=== PATIENT | female | born 1955 | race Caucasian/White ===

== ENCOUNTER 2023-03-10 13:07 | Outpatient (CLI) | payer MEDICARE, OTHER, SELFPAY | END 2023-03-10 13:08 | disposition home or self-care (01) | PROVIDERS: Visit Provider Family Medicine | DX: E11.9 Type 2 diabetes mellitus without complications (principal); Z79.899 Other long term (current) drug therapy; E03.9 Hypothyroidism, unspecified; E78.5 Hyperlipidemia, unspecified; I10 Essential (primary) hypertension | CPT/HCPCS: 80048; 80061; 84443; 84460 ==

== ENCOUNTER 2023-05-15 15:18 | Outpatient (CLI) | payer MEDICARE, OTHER, SELFPAY ==
--- NOTE | 2023-05-15 16:00 | CRLHL7_ITS ---
For Patients: As a result of the Cures Act, medical imaging exams and procedure reports are released immediately into your electronic medical record. You may view this report before your referring provider. If you have questions, please contact your health care provider. INDICATION: Trauma, fall. Left eye and facial bruising. TECHNIQUE: CT maxillofacial without contrast. COMPARISON: None. FINDINGS: Facial bones: Comminuted mildly displaced fracture of the nasal bone. Nondisplaced fracture plane extends to the frontal process of the left maxilla. Nasal septum is intact. Right TMJ arthrosis. Orbits and globes: Mild left superior periorbital soft tissue swelling. Globes are intact. No sign of intraorbital hemorrhage or emphysema. Sinuses: No acute or significant findings. Soft tissues: Partially visualized brain demonstrates generalized cerebral atrophy. IMPRESSION: 1. Comminuted mildly displaced nasal bone fracture with nondisplaced fracture plane extending to the left maxilla frontal process. 2. Mild left superior periorbital soft tissue swelling. Please note that all CT scans at this facility use dose modulation, iterative reconstruction, and/or weight-based dosing when appropriate to reduce radiation dose to as low as reasonably achievable. Dictated by Serafin Youssef MD @ 05/15/2023 4:17:32 PM (Electronically Signed)
== END 2023-05-15 15:19 | disposition home or self-care (01) ==
LOC: CT 15:19
PROVIDERS: PCP Family Medicine; Visit Provider Family Medicine
DX: S09.93XA Unspecified injury of face, initial encounter (principal); S02.2XXA Fracture of nasal bones, initial encounter for closed fracture; S02.40DA Maxillary fracture, left side, initial encounter for closed fracture
CPT/HCPCS: 70486

== ENCOUNTER 2023-07-09 10:26 | Outpatient (CLI) | payer MEDICARE, OTHER, SELFPAY | END 2023-07-09 10:27 | disposition home or self-care (01) | PROVIDERS: PCP Family Medicine; Visit Provider Family Medicine | DX: E03.9 Hypothyroidism, unspecified (principal); I10 Essential (primary) hypertension; E11.9 Type 2 diabetes mellitus without complications | CPT/HCPCS: 80048; 82043; 82570; 84443; 85025 ==

== ENCOUNTER 2023-11-03 10:25 | Outpatient (CLI) | payer MEDICARE, OTHER, SELFPAY | END 2023-11-03 10:26 | disposition home or self-care (01) | LOC: NFLDREF 11-05 09:06 | PROVIDERS: PCP Family Medicine; Referring Provider Family Medicine; Visit Provider Family Medicine | DX: E03.9 Hypothyroidism, unspecified (principal); N39.0 Urinary tract infection, site not specified | CPT/HCPCS: 84443; 87086; 87186 ==

== ENCOUNTER 2024-03-14 14:05 | Outpatient (CLI) | payer MEDICARE, OTHER, SELFPAY ==
--- NOTE | 2024-03-14 14:30 | MR_ITS ---
[facility] [address] [facility] [address] Phone:?[phone] Fax:?[phone] Referring Physician Information: Asa Coats [address] [facility] [address] Phone:?[phone] Fax:?[phone] Patient:Robyn Moore D.O.B:?1955 Sex:?Female Phone:?[phone] [facility] MRN:?[id number] Exam Date:?03/14/2024 EXAM: MRI of the RIGHT SHOULDER, without contrast CLINICAL: Right shoulder pain. Evaluate supraspinatus and AC joint. COMPARISONS: X-rays dated 03/11/24. TECHNICAL: Multiplanar multisequence MRI of the right shoulder was obtained. SEDATION: None. CONTRAST: None. FINDINGS: Rotator cuff: Supraspinatus/Infraspinatus: There is moderate tendinosis of the distal supraspinatus and infraspinatus tendons. There is partial articular surface tearing of the posterior distal supraspinatus tendon on coronal series 5 images 11-12 with partial interstitial and bursal surface tearing of supraspinatus tendon just anterior to this on coronal series 5 image 10. Tearing involves approximately 65% of the tendon thickness. There is focal partial interstitial insertional tearing of the posterior distal infraspinatus tendon on coronal series 5 image 16. No significant fatty atrophy of the muscle bellies. Teres minor: No tendinosis, tear or atrophy. Subscapularis: Mild tendinosis of the tendon. No significant tendon tear and no significant fatty atrophy of the muscle belly. Bursae: Subacromial-subdeltoid: Mild bursal fluid. Subcoracoid: No significant bursal fluid. Coracoacromial arch: Acromion morphology: Type II. No os acromiale. Acromiohumeral space: Within normal limits. Coracohumeral space: Within normal limits. Biceps tendon, long head: Evaluation of the intra-articular tendon is somewhat limited by artifact. Suspect attenuation/partial tearing of the intra-articular tendon as visualized. Mild tendinosis/partial tearing involves the imaged proximal extra-articular tendon. Mild fluid and low signal synovitis noted about the imaged proximal extra-articular tendon. No significant tendon displacement. Glenohumeral joint: Physiologic volume of joint fluid. Articular cartilage: No discrete chondral defects identified as visualized. Capsule: No convincing evidence of capsular thickening or injury. Labrum: Ill-defined fraying/tearing is seen to involve the superior labrum. No additional labral tear identified. No perilabral cyst identified. Bones: Small cystic changes and with adjacent reactive marrow edema involves the greater tuberosity of the proximal humerus. There is no evidence of fracture. Acromioclavicular joint: Moderate degenerative hypertrophic changes are seen to involve the superior aspect of the AC joint. No AC joint widening. IMPRESSION: 1. Moderate tendinosis with superimposed partial tearing of the distal supraspinatus and infraspinatus tendons as above. Mild tendinosis of the subscapularis tendon. 2. Suspect tendinosis/partial tearing of the intra-articular long head biceps tendon as visualized with mild tendinosis/partial interstitial tearing of the imaged proximal extra-articular tendon. 3. Ill-defined fraying/tearing involving the superior labrum. 4. Moderate degenerative hypertrophic change involving the superior aspect of the AC joint. 5. Mild subacromial-subdeltoid bursitis. [facility] Electronically signed on 03/15/2024 10:17:00 AM by Leonard Fernandez D.O.
== END 2024-03-14 14:06 | disposition home or self-care (01) ==
PROVIDERS: PCP Family Medicine; Visit Provider Physician Assistant
DX: M25.511 Pain in right shoulder (principal); M75.101 Unspecified rotator cuff tear or rupture of right shoulder, not specified as traumatic; S46.211A Strain of muscle, fascia and tendon of other parts of biceps, right arm, initial encounter; M75.51 Bursitis of right shoulder; M25.611 Stiffness of right shoulder, not elsewhere classified
CPT/HCPCS: 73221

== ENCOUNTER 2024-05-31 13:26 | Outpatient (CLI) | payer MEDICARE, OTHER, SELFPAY | END 2024-05-31 13:27 | disposition home or self-care (01) | PROVIDERS: PCP Family Medicine; Visit Provider Family Medicine | DX: E03.9 Hypothyroidism, unspecified (principal); I10 Essential (primary) hypertension; E78.2 Mixed hyperlipidemia | CPT/HCPCS: 80048; 80061; 84443; 84460 ==

== ENCOUNTER 2024-06-21 06:27 | Day surgery (SDC) | payer MEDICARE, OTHER, SELFPAY ==
[2024-06-21] VITALS (17 sets, daily range): BP systolic 119–174; BP diastolic 61–96; PULSE 69–90; RESP 14–16; TEMP 35.7–36.7; O2SAT 91–99; BMI 35.4
[2024-06-21] MEDS: ACETAMINOPHEN 500 MG TABLET 1000 MG PO (07:19)
[2024-06-21] MEDS: OXYCODONE (CR) 10 MG TAB.ER.12H PO (07:20)
[2024-06-21] MEDS: CELECOXIB 200 MG CAPSULE PO (07:20)
[2024-06-21] MEDS: SODIUM CHLORIDE 0.9 % (FLUSH) 10 ML SYRINGE IVF (07:25)
[2024-06-21] MEDS: LACTATED RINGERS 500 ML 500 ML 100 ML IV (07:40)
--- NOTE | 2024-06-21 07:40 | SUR.PREOP ---
TIME?OUT:?7640 PT/RN/MDA?VERIFICATION?OF?SURGICAL?SITE, NERVE BLOCK,?PROCEDURE,?AND?CONSENT OBTAINED?PRIOR?TO?INVASIVE?PROCEDURE.
[2024-06-21] MEDS: MIDAZOLAM HCL 1 MG/ML inj IVP (07:41)
[2024-06-21] MEDS: fentaNYL 100 MCG/2 ML inj IVP (07:41)
[2024-06-21] MEDS: CEFAZOLIN 2 GM INJ IVP (08:15)
[2024-06-21] MEDS: LACTATED RINGERS 1000 ML 1,000 ML 100 ML IV (08:45)
--- NOTE | 2024-06-21 08:55 | P.NB_ITS ---
Nerve Block Nerve Block Time Seen by Provider: 07:46 Date Seen: 06/21/24 Type of block requested by surgeon for post-operative analgesia: supraclavicular Side: right Time out performed: Yes Verification of patient name: Yes Verification of date of : Yes Site marking: site marked Name of person performing procedure: Jose Continuous monitoring Was continuous monitoring of O2 sat, B/P, clinical research monitor, recorded every 15 minutes?: Yes Procedure Checklist: sterile prep, needles and gloves Ultrasound guided. Images saved: Yes Medications given in 5ml increments after negative aspiration: Ropivicaine %: 0.5 mL: 20 Needle gauge: 22 Precedex (mcg): 25 Patient tolerated procedure well: Yes Block Charges Block Charge (with Pro Fee): Brachial Plexus Use of Ultrasound Machine for Block: Yes- US Guidance/pain block
--- NOTE | 2024-06-21 08:56 | W.ANESCHARGE ---
Anesthesia Charges Start Date/Time Anesthesia Start Date: 06/21/24 Anesthesia Start Time: 07:59 Stop Date/Time Anesthesia Stop Date: 06/21/24 Anesthesia Stop Time: 10:19 Summary Extremes of Age - Over 70 or under 1: MDA Coding CPT Codes CPT Codes: ANESTH SURGERY OF SHOULDER - 24158 ([id number]) P2 - PATIENT W/MILD SYST DISEASE, QK - PRESSURE TANK OPERATOR 2-4 CNCRNT ANES PROC, QX - GREASE PACKER SVC W/ MD MED DIRECTION Additional Codes: Summary - Extremes of Age - Over 70 or under 1: MDA ([id number])
--- NOTE | 2024-06-21 09:51 | P.ORPRC_ITS ---
Procedure Note Date of procedure: 06/21/24 Procedure: PREOPERATIVE DIAGNOSIS: Right shoulder rotator cuff tear, AC joint arthrosis, biceps tendinopathy, labral tearing POSTOPERATIVE DIAGNOSIS: Right shoulder rotator cuff tear, AC joint arthrosis, biceps tendinopathy, labral tearing NAME OF OPERATION: Right shoulder arthroscopic subacromial decompression, distal clavicle excision, mini open rotator cuff repair, limited glenohumeral joint debridement, biceps tenodesis SURGEON: James Rubalcava MD ELECTROPLATING WORKER: Antonia Toledo PA-C ANESTHESIA: Supraclavicular block plus general endotracheal ESTIMATED BLOOD LOSS: 5 mL COMPLICATIONS: None SPECIMENS: None DRAINS: None PREOPERATIVE ANTIBIOTICS: Ancef 2 grams INDICATIONS: The patient is a 68-year-old with a history of right shoulder pain secondary to the above diagnoses. Despite appropriate non operative management, they continue to have symptoms. Operative intervention was recommended. The risks, benefits and expected outcomes were discussed in detail. These included but were not limited to: Infection, bleeding, injury to blood vessel or nerve, venous thromboembolism. All questions were answered to their satisfaction. PROCEDURE: A supraclavicular block was placed by Anesthesia. General anesthesia was administered. The patient was placed in the high beach chair position. The right shoulder was prepped and draped in the usual sterile fashion. The glenohumeral joint was infiltrated with 20 mL of normal saline with epinephrine. The posterior portal was established, the arthroscope was introduced. The anterior portal was established, Diagnostic arthroscopy was performed with findings as follows: The biceps has a marked amount of intra- articular tendinopathy The anterior, posterior and superior labrum shows age- appropriate degenerative tearing. Articular surfaces on the humeral head and glenoid are normal. There are no loose bodies. There is a near full-thickness tear of the supraspinatus. The biceps was tenotomized with arthroscopic scissors and radiofrequency probe. The stump was debrided with the shaver. The superior labrum was debrided with the shaver. The arthroscope was placed in the subacromial space, the lateral portal was established. The Arthrex [place] was used to dissect the acromion free. The CA ligament was recessed off the anterior acromion, the AC joint was exposed. The acromioplasty was performed with the bur in the posterior portal. The bur was then placed in the lateral portal and the lateral and anterior aspect of the acromion were resected. The undersurface of the distal clavicle was resected through the lateral portal. Finally, the bur was placed in the anterior portal and the remainder of the distal clavicle was resected for a total of 10 mm. An accessory anterolateral portal was placed. The subacromial/subdeltoid bursa was aggressively debrided. There is a near full-thickness tear of the supraspinatus. Arthroscopic instruments were removed. The accessory anterolateral portal was extended proximally and distally, subcutaneous dissection was taken with electrocautery to the deltoid. The deltoid was divided in line with its fibers. The static retractor was placed. The subacromial/subdeltoid bursa was debrided with the Anaya scissors. The few remaining insertional fibers of the supraspinatus were released with the scalpel. The biceps was delivered into the wound. A whipstitch was placed in the biceps using a FiberLink and the scorpion. The greater tuberosity was debrided to punctate bleeding bone using the Lempert rongeur. Two FiberTak anchors were placed in the greater tuberosity, just off the articular surface. Both limbs of the FiberWire and fiber tape were passed using the scorpion. A fiber link was placed in the leading edge of the rotator cuff x2. The biceps was tenodesed, high in the bicipital groove with a SwiveLock anchor, using the whipstitch previously placed in it. The sutures on the eyelet were passed through the supraspinatus and tied over the bursal surface. We tied the 2 central FiberWire sutures over the rotator cuff. We then proceeded with a lateral row of SwiveLock anchors x 2 crossing the FiberTape and incorporating the FiberWire and fiber link into each lateral row anchor. This provides an anatomic, watertight repair of the rotator cuff. There is no tension on the repair with the shoulder at 0? abduction. The wound was irrigated with normal saline off the pump. The deltoid was repaired with an 0 Vicryl in an interrupted [id number] fashion. Subcutaneous tissues were closed with a 3-0 Vicryl. Skin was closed with a 3-0 Monocryl in a subcuticular fashion. A dry dressing and sling were applied. Sponge and needle counts were correct x2. The patient tolerated the procedure well. There were no apparent complications. They were carefully transferred to the hospital bed and taken to the postanesthesia care unit in satisfactory condition. PLAN: The patient will be discharged to home. No active range of motion of the shoulder will be allowed for 6 weeks postoperatively. They can work on active range of motion of the elbow, wrist and fingers. They will follow up in the office next week for a wound check and an AP and transscapular Y-view of the shoulder prior to being seen.
--- NOTE | 2024-06-21 10:23 | W.ANESCHARGE ---
Anesthesia Charges Start Date/Time Anesthesia Start Date: 06/21/24 Anesthesia Start Time: 07:59 Stop Date/Time Anesthesia Stop Date: 06/21/24 Anesthesia Stop Time: 10:19 Coding CPT Codes CPT Codes: ANESTH SURGERY OF SHOULDER - 60895 ([id number]) P2 - PATIENT W/MILD SYST DISEASE, QK - WHITE WORK CLEANER 2-4 CNCRNT ANES PROC, QX - LEAD PROGRAMMER ANALYST SVC W/ MD MED DIRECTION
== END 2024-06-21 12:22 | disposition home or self-care (01) ==
LOC: OR 06:28
PROVIDERS: PCP Family Medicine; Visit Provider Orthopaedic Surgery
PROC: (CPT 23412; principal; 2024-06-21 08:00)
DX: M75.101 Unspecified rotator cuff tear or rupture of right shoulder, not specified as traumatic (principal); M19.011 Primary osteoarthritis, right shoulder; M75.21 Bicipital tendinitis, right shoulder; S43.431A Superior glenoid labrum lesion of right shoulder, initial encounter; G89.18 Other acute postprocedural pain; I10 Essential (primary) hypertension; E11.9 Type 2 diabetes mellitus without complications; K21.9 Gastro-esophageal reflux disease without esophagitis; N32.81 Overactive bladder
CPT/HCPCS: 29826; 29824; 29822; 29828; 23412; 01630; 64415; 76942; 82962; 99100; A9270; C1713; J0330; J0690; J1100; J2250; J2371; J2405; J2704; J2795; J3010; J7120

== ENCOUNTER 2024-12-23 08:58 | Outpatient (CLI) | payer MEDICARE, OTHER, SELFPAY ==
--- NOTE | 2024-12-23 09:15 | CRLHL7_ITS ---
For Patients: As a result of the Century Cures Act, medical imaging exams and procedure reports are released immediately into your electronic medical record. You may view this report before your referring provider. If you have questions, please contact your health care provider. Technique: Single contrast timed barium esophagram performed with administration of 150 cc thin barium. Patient swallowed the barium within 1 minute. Fluoroscopy time 28 seconds. Indication: Dysphagia, evaluate LES Function Comparison: None. Findings: 1 minute: All of the contrast is located in the stomach. 2 minute: A small amount of reflux is noted. 5 minute: Not performed. Impression: No achalasia. Dictated by Zeferino Zapien MD @ 12/23/2024 10:12:58 AM (Electronically Signed)
== END 2024-12-23 08:59 | disposition home or self-care (01) ==
PROVIDERS: PCP Family Medicine; Visit Provider Student in an Organized Health Care Education/Training Program
DX: R13.10 Dysphagia, unspecified (principal)
CPT/HCPCS: 74220

== ENCOUNTER 2025-02-08 11:53 | Outpatient (CLI) | payer MEDICARE, OTHER, SELFPAY | END 2025-02-08 11:54 | disposition home or self-care (01) | LOC: NFLDREF 02-11 16:52 | PROVIDERS: PCP Family Medicine; Referring Provider Family Medicine; Visit Provider Family Medicine | DX: E11.9 Type 2 diabetes mellitus without complications (principal) | CPT/HCPCS: 82043; 82570 ==